=== PATIENT | female | born 1970 | race Caucasian/White ===

== ENCOUNTER 2017-06-26 09:02 | Emergency (ER) | payer OTHER, SELFPAY ==
[2017-06-26 10:04] LABS: Absolute Lymphocytes (CBC) 2.1 K/uL (0.7-4.9); Absolute Monocytes 0.7 K/uL (0.1-1.3); Absolute Neutrophil 7.8 K/uL (1.8-8.0); Basophils % 0.6 % (0-1.3); Eosinophils % 2.2 % (0-4.4); Hematocrit 34.6 % (36.0-45.0); Lymphocytes % 19.1 % (15.3-44.8); MCH 29.2 pg (27.0-35.0); MCV 86.6 fL (80-100); MPV 6.9 fL (7.6-11.3); Monocytes % 6.3 % (3.3-12.3)
--- NOTE | 2017-06-26 10:07 | EKG ---
Test Date: 2017-06-26 Test Time: 09:37:15 Partner Marketing Manager: LEON MEASUREMENT RESULTS: Intervals: Rate: 81 IA: 142 QRSD: 68 QT: 386 QTc: 448 [place]: P: 49 IA: 142 QRS: 14 T: 45 INTERPRETIVE STATEMENTS: Normal sinus rhythm Normal ECG No previous ECG available for comparison Electronically Signed On 06-26-17 10:07:25 CDT by Demetrius Olivear
[2017-06-26 10:14] LABS: Bicarbonate 24 mEq/L (21-31); Glucose Level 105 mg/dL (65-120); Lipase 17 U/L (22-51); Potassium 3.8 mEq/L (3.6-5.0); Sodium Level 135 mEq/L (135-145)
[2017-06-26 10:20] LABS: ALT/SGPT 24 IU/L (10-60); AST/SGOT 24 IU/L (10-42); Albumin 3.8 g/dL (3.2-5.5); Alkaline Phosphatase 69 IU/L (42-121); BUN Blood Urea Nitrogen 7 mg/dL (6-20); Bilirubin Direct 0.1 mg/dL (0-0.2); Bilirubin Total 0.6 mg/dL (0.3-1.2); Magnesium 1.9 mg/dL (1.8-2.5); Protein, Total 7.4 g/dL (6.0-8.3)
[2017-06-26 10:30] LABS: Protime INR 0.97
--- NOTE | 2017-06-26 10:31 | RAD REPORT ---
EXAM DESCRIPTION: Traci Single View06/26/2017 9:46 am CLINICAL HISTORY: Chest pain COMPARISON: none FINDINGS: The lungs appear clear of acute infiltrate. The heart is normal size IMPRESSION: No acute abnormalities displayed
[2017-06-26] MEDS ORDERED: MAGNE/ALUM HYDROXD 30 ML UCUP ONE (11:01)
[2017-06-26] MEDS ORDERED: LIDOCAINE VISCOUS 2% SOLN 15 ML UDC ONE (11:01)
--- NOTE | 2017-06-26 11:02 | ER ---
Nurse's Notes [facility] Name: Kayla Celestin Age: 46 yrs Sex: Female : 1970 Arrival Date: 06/26/2017 Time: 09:06 Bed 15 Private MD: Jessy Smith Diagnosis: Chest pain, unspecified Presentation: 06/26 09:12 Presenting complaint: Patient states: sharp, stabbing, intermittent pain under L breast ss x 3 days. Is worse when laying down and/or when eating. PT also c/o severe fatigue. Transition of care: patient was not received from another setting of care. Onset of symptoms was June 23, 2017. Care prior to arrival: None. 09:12 Method Of Arrival: Ambulatory ss 09:12 Acuity: LUIZ 3 ss Triage Assessment: :54 General: Appears in no apparent distress. uncomfortable, Behavior is cooperative, hj appropriate for age, anxious. Pain: Complains of pain in chest. EENT: No signs and/or symptoms were reported regarding the EENT system. Neuro: Level of Consciousness is awake, alert, obeys commands, Oriented to person, place, time, situation, Appropriate for age. Cardiovascular: Heart tones S1 S2 present Capillary refill < 3 seconds Patient's skin is warm and dry. Respiratory: Airway is patent Respiratory effort is even, unlabored, Respiratory pattern is regular, symmetrical. GI: No signs and/or symptoms were reported involving the gastrointestinal system. : No signs and/or symptoms were reported regarding the genitourinary system. Derm: No signs and/or symptoms reported regarding the dermatologic system. Musculoskeletal: No signs and/or symptoms reported regarding the musculoskeletal system. Historical: - Allergies: 09:27 Ibuprofen; ss - PMHx: 09:27 Hypertension; Anxiety; Bipolar disorder; Depression; ss - PSHx: 09:27 Tubal ligation; ectopic ; endometreosis; Lumpectomy; ss - Immunization history:: Adult Immunizations up to date. - Social history:: Smoking status: Patient uses tobacco products, smokes one-half pack cigarettes per day. Screenin:54 Abuse screen: Denies threats or abuse. Denies injuries from another. Nutritional hj screening: No deficits noted. Tuberculosis screening: No symptoms or risk factors identified. Fall Risk None identified. Assessment: 09:55 Pain: Pain does not radiate. Pain began 1 day ago. hj Vital Signs: 09:27 BP 134 / 97; Pulse 104; Resp 17; Temp 98.5(O); Pulse Ox 96% on R/A; Weight 99.79 kg; ss Height 5 ft. 6 in. (167.64 cm); Pain 8/10; 09:27 Body Mass Index 35.51 (99.79 kg, 167.64 cm) ED Course: 09:06 Patient arrived in ED. mr 09:06 Jessy Smith MD is Private Physician. mr 09:26 Triage completed. ss 09:26 Reid Westfall, SCAR is Primary Nurse. hj 09:27 Arm band placed on right wrist. ss 09:28 Adalberto Bowling NP is PHCP. pm1 09:28 Aakash Rubio MD is Attending Physician. pm1 09:34 EKG done, by technical program manager. reviewed by Adalberto Bowling NP. at1 09:44 X-ray completed. Portable x-ray completed in exam room. Patient tolerated procedure ag1 well. 09:45 XRAY Chest (1 view) In Process Unspecified. EDMS 09:50 Initial lab(s) drawn, by nc, sent to lab. Inserted saline lock: 22 gauge in right hj antecubital area, using aseptic technique. Blood collected. 09:55 tooth grinder on. Pulse ox on. NIBP on. hj 09:55 Patient has correct armband on for positive identification. Placed in gown. Bed in low hj position. Call light in reach. Side rails up X 1. 09:55 Patient maintains SpO2 saturation greater than 95% on room air. hj 11:01 Milton Gates MD is Referral Physician. pm1 11:25 No provider procedures requiring assistance completed. IV discontinued, intact, hj bleeding controlled, No redness/swelling at site. Pressure dressing applied. Administered Medications: 10:45 Drug: GI Cocktail without - (Maalox Suspension 30 ml, Lidocaine Liquid 2 % 15 wh ml) Route: PO; 11:36 Follow up: Response: No adverse reaction hj 10:48 Drug: Pepcid 20 mg Route: IVP; Site: left antecubital; 11:37 Follow up: Response: No adverse reaction hj Outcome: 11:01 Discharge ordered by . pm1 11:25 Discharged to home ambulatory. hj 11:25 Condition: stable 11:25 Discharge instructions given to patient, Instructed on discharge instructions, follow up and referral plans. Demonstrated understanding of instructions, follow-up care. 11:25 Patient left the ED. Signatures: Dispatcher [employer] EDMA DavidIsabella pichardo Shelby, RN RN Mena jeff, nurse rn bsn EKG Tat1 Valery Vivar ag1 Reid Westfall RN RN hj Marinas, Patrick, HOTEL NIGHT AUDITOR HOTEL NIGHT AUDITOR pm1 Rodrigo Perez
--- NOTE | 2017-06-26 11:03 | EDPHYS ---
Physician Documentation [facility] Name: Kayla Celestin Age: 46 yrs Sex: Female : 1970 Arrival Date: 06/26/2017 Time: 09:06 Bed 15 Private MD: Jessy Smith ED Physician Aakash Rubio HPI: 06/26 10:00 This 46 yrs old Female presents to ER via Ambulatory with complaints of Chest pm1 Pain. 10:00 Onset: The symptoms/episode began/occurred 3 day(s) ago. pm1 11:04 The patient or guardian reports chest pain that is located primarily in the substernal pm1 area. Onset:. The pain does not radiate. Associated signs and symptoms: Pertinent negatives: abdominal pain, cough, nausea, shortness of breath, vomiting. The chest pain is described as burning. Duration: The patient or guardian reports a single episode, that is still ongoing. Modifying factors: The symptoms are alleviated by nothing. the symptoms are aggravated by Food and lying down. Severity of pain: in the emergency department the pain is actually worse. prior reflux disease from hiatal hernias. Historical: - Allergies: : Ibuprofen; ss - PMHx: : Hypertension; Anxiety; Bipolar disorder; Depression; ss - PSHx: : Tubal ligation; ectopic ; endometreosis; Lumpectomy; ss - Immunization history:: Adult Immunizations up to date. - Social history:: Smoking status: Patient uses tobacco products, smokes one-half pack cigarettes per day. ROS: 11:04 Constitutional: Negative for fever, chills, and weight loss, Eyes: Negative for injury, pm1 pain, redness, and discharge, ENT: Negative for injury, pain, and discharge, Neck: Negative for injury, pain, and swelling. 11:04 Respiratory: Negative for shortness of breath, cough, wheezing, and pleuritic chest pain, Abdomen/GI: Negative for abdominal pain, nausea, vomiting, diarrhea, and constipation, Back: Negative for injury and pain, : Negative for injury, bleeding, discharge, and swelling, MS/Extremity: Negative for injury and deformity, Skin: Negative for injury, rash, and discoloration, Neuro: Negative for headache, weakness, numbness, tingling, and seizure. 11:04 Cardiovascular: Positive for chest pain, Negative for edema, palpitations. Exam: 11:04 Constitutional: This is a well developed, well nourished patient who is awake, alert, pm1 and in no acute distress. Head/Face: Normocephalic, atraumatic. Eyes: Pupils equal round and reactive to light, extra-ocular motions intact. Lids and lashes normal. Conjunctiva and sclera are non-icteric and not injected. Cornea within normal limits. Periorbital areas with no swelling, redness, or edema. ENT: Nares patent. No nasal discharge, no septal abnormalities noted. Tympanic membranes are normal and external auditory canals are clear. Oropharynx with no redness, swelling, or masses, exudates, or evidence of obstruction, uvula midline. Mucous membranes moist. Neck: Trachea midline, no thyromegaly or masses palpated, and no cervical lymphadenopathy. Supple, full range of motion without nuchal rigidity, or vertebral point tenderness. No Meningismus. Chest/axilla: Normal chest wall appearance and motion. Nontender with no deformity. No lesions are appreciated. Cardiovascular: Regular rate and rhythm with a normal S1 and S2. No gallops, murmurs, or rubs. Normal PMI, no JVD. No pulse deficits. Respiratory: Lungs have equal breath sounds bilaterally, clear to auscultation and percussion. No rales, rhonchi or wheezes noted. No increased work of breathing, no retractions or nasal flaring. Abdomen/GI: Soft, non-tender, with normal bowel sounds. No distension or tympany. No guarding or rebound. No evidence of tenderness throughout. Back: No spinal tenderness. No costovertebral tenderness. Full range of motion. Skin: Warm, dry with normal turgor. Normal color with no rashes, no lesions, and no evidence of cellulitis. MS/ Extremity: Pulses equal, no cyanosis. Neurovascular intact. Full, normal range of motion. 11:04 Neuro: Orientation: is normal, Mentation: is normal, Motor: moves all fours, Gait: is steady, at a normal pace, without difficulty. Vital Signs: 09:27 BP 134 / 97; Pulse 104; Resp 17; Temp 98.5(O); Pulse Ox 96% on R/A; Weight 99.79 kg; ss Height 5 ft. 6 in. (167.64 cm); Pain 10/31; 09:27 Body Mass Index 35.51 (99.79 kg, 167.64 cm) ss MDM: 09:28 Patient medically screened. pm1 11:00 Data reviewed: vital signs. Data interpreted: Pulse oximetry: on room air is 96 %. pm1 Interpretation: normal. Counseling: I had a detailed discussion with the patient and/or guardian regarding: the historical points, exam findings, and any diagnostic results supporting the discharge/admit diagnosis, lab results, radiology results, the need for outpatient follow up, to return to the emergency department if symptoms worsen or persist or if there are any questions or concerns that arise at home. 06/26 09:32 Order name: Basic Metabolic Panel; Complete Time: 10:30 pm06/26 09:32 Order name: BNP; Complete Time: 10:30 pm06/26 09:32 Order name: CBC with Diff; Complete Time: 10:19 pm06/26 09:32 Order name: LFT's; Complete Time: 10:30 pm06/26 09:32 Order name: Magnesium; Complete Time: 10:30 pm06/26 09:32 Order name: PT-INR; Complete Time: 10:35 pm06/26 09:32 Order name: Ptt, Activated; Complete Time: 10:35 pm06/26 09:32 Order name: Troponin (emerg Dept Use Only); Complete Time: 10:30 pm06/26 09:32 Order name: XRAY Chest (1 view); Complete Time: 10:35 pm06/26 09:32 Order name: Lipase; Complete Time: 10:30 pm06/26 10:10 Order name: Urine Dipstick--Ancillary (enter results) ag 06/26 10:10 Order name: Urine --Ancillary (enter results) ag 06/26 09:32 Order name: Urine Test (obtain specimen); Complete Time: 10:07 pm06/26 09:32 Order name: EKG; Complete Time: 09:33 pm06/26 09:32 Order name: Cardiac monitoring; Complete Time: 09:36 pm06/26 09:32 Order name: EKG - Nurse/Tech; Complete Time: 09:36 pm06/26 09:32 Order name: IV Saline Lock; Complete Time: 10:08 pm1 06/26 09:32 Order name: Labs collected and sent; Complete Time: 10:08 pm1 06/26 09:32 Order name: O2 Per Protocol; Complete Time: 09:36 pm1 06/26 09:32 Order name: O2 Sat Monitoring; Complete Time: 09:36 pm1 04 09:32 Order name: Urine Dipstick-Ancillary (obtain specimen); Complete Time: 10:07 pm1 Administered Medications: 10:45 Drug: GI Cocktail without - (Maalox Suspension 30 ml, Lidocaine Liquid 2 % 15 wh ml) Route: PO; 11:36 Follow up: Response: No adverse reaction 10:48 Drug: Pepcid 20 mg Route: IVP; Site: left antecubital; 11:37 Follow up: Response: No adverse reaction Disposition: 16:15 Co-signature as Attending Physician, Aakash Rubio MD I agree with the assessment and justyn plan of care. Disposition: 06/26/17 11:01 Discharged to Home. Impression: Chest pain, unspecified. - Condition is Stable. - Discharge Instructions: Nonspecific Chest Pain. - Medication Reconciliation Form, Thank You Letter form. - Follow up: Emergency Department; When: As needed; Reason: Worsening of condition. Follow up: Milton Gates MD; When: 2 - 3 days; Reason: Recheck today's complaints, Continuance of care, Re-evaluation by your physician. - Problem is new. - Symptoms have improved. Signatures: Dispatcher [employer] Aakash Foy MD MD cha Smirch, Shelby, RN RN Reid Westfall RN RN hj Marinas, Patrick, TYLER CHIEF SERVICE DISPATCHER pm1 Felicianoshayna Rodrigo
[2017-06-26] MEDS ORDERED: FAMOTIDINE 20 MG/2 ML VIAL IV ONE (11:06)
[2017-06-26 11:25] LABS: Urine Blood NEGATIVE (NEG); Urine Glucose NEGATIVE (NEG); Urine Protein TRACE (NEG); Urine pH 6.5 (5.0-7.0)
[2017-06-26 11:32] VITALS: BP 134/97; TEMP 98.5; O2SAT 96
== END 2017-06-26 11:25 | disposition home or self-care (01) ==
LOC: ER 09:02
DX: R07.9 Chest pain, unspecified (principal); I10 Essential (primary) hypertension; F17.210 Nicotine dependence, cigarettes, uncomplicated; Z88.6 Allergy status to analgesic agent
CPT/HCPCS: 36415; 71045; 80048; 80076; 81003; 81025; 83690; 83735; 83880; 84484; 85025; 85610; 85730; 93005; 96374; 99285

== ENCOUNTER 2019-08-21 23:14 | Emergency (ER) | payer BC, SELFPAY ==
--- OUTSIDE RECORDS SUMMARY | 2019-08-21 23:17 | XMS REPORT ---
:1970 Author Organization e[employer]Works Care Team Providers Name Role Phone Smith, Na Provider Role Unavailable Allergies No Known Allergies Problems Problem Type Condition Code Onset Dates Condition Statu s Problem Cigarette smoker F17.210 Active Problem Depression with anxiety F41.8 Acti ve Problem Atypical chest pain R07.89 Active Problem Bipolar disorder F31.9 Active Problem White coat syndrome with diagnosis I10 Active of hypertension Problem Thrombocytopenia D69.6 Active Problem Abscess L02.91 Active Problem Obese E66.9 Active Problem GERD (gastroesophageal reflux K21.9 Active disease) Problem Cough R05 Active Problem Bipolar 1 disorder F31.9 Active Medications No Known Medications Results No Known Results Summary Purpose eClinicalWorks Submission
--- OUTSIDE RECORDS SUMMARY | 2019-08-21 23:17 | XMS REPORT ---
:1970 Author Organization [facility] t Address [facility] [place] [address] Care Team Providers Name Role Phone Unavailable Unavailable Unavailable Problems Condition Condition Condition Status Onset Resolution Last Treating Co mments Source Name Details Category Date Date Treatment Clinician Date White coat White coat Problem Active [facility] syndrome [facility] diagnosis diagnosis l of of Outpati hypertensi hypertensi en t on on Clinics Obese Obese Problem Active [facility] GERD GERD Problem Active [facility] (gastroeso (gastroeso Sarita kes - phageal phageal [facility]oria reflux reflux l disease) disease) Outpat ent Clinics Depression Depression Diagnosis [facility] Bipolar 1 Bipolar [address] [facility] disorder disorder [facility] Thrombocyt Thrombocyt Problem Active [facility] openia openia [facility] Cough Cough Problem Active [facility] Atypical Atypical Problem [facility] chest pain chest pain Sairta k[facility] - [facility] Cigarette Cigarette Problem Active [facility] smoker smoker [facility] Abscess Abscess Problem Active [facility] Allergies, Adverse Reactions, Alerts Allergy Allergy Status Severity Reaction(s) Onset Inactive Treating Comm ents Source Name Type Date Date Clinician Naproxen Adverse Active Info Not [facility] Reaction Available [facility] Medications Ordered Filled Start Stop Current Ordering Indication Dosage Frequency Signature Comments Components Source Medication Medication Date Date Medication? Clinician (SIG) Name Name Xanax Xanax Yes Na Smith [address] [facility] QUEtiapine QUEtiapine Yes Na Smith [address] [facility] Fumarate ER Fumarate ER in the [facility] evening [facility] Outpati ent Clinics Procedures This patient has no known procedures. Encounters Start End Encounter Admission Attending Care Care Encounter Source Date/Time Date/Time Type Type Clinicians Facility Department ID 2019-07-26 2019-07-26 [facility] [id number] [facility] 11:41:00 11:41:00 [place] [facility] Medicine Outpati ent Clinics 2019-07-08 2019-07-08 [facility] [id number] [facility] 16:13:00 16:13:00 [place] [facility] Medicine Outpati ent Clinics 2019-06-22 2019-06-22 [facility] [id number] [facility] 15:33:00 15:33:00 [place] [facility] Medicine Outpati ent Clinics 2019-05-28 2019-05-28 [facility] [id number] [facility] 08:40:00 08:40:00 [place] [facility] Medicine Outpati ent Clinics 2019-04-29 2019-04-29 [facility] [id number] [facility] 09:00:00 09:00:00 [place] [facility] Medicine Outpati ent Clinics 2019-03-29 2019-03-29 [facility] [id number] [facility] 08[facility]40:00 08:40:00 [place] [facility] Medicine Outpati ent Clinics 2019-02-23 2019-02-23 [facility] [id number] 15:40:00 15:40:00 [place] [employer] [facility] Medicine Outpati ent Clinics 2018-11-30 2018-11-30 [facility] [id number] 16:32:00 16:32:00 [place] [employer] [facility] Medicine Outpati ent Clinics 2018-09-16 2018-09-16 [facility] [id number] 08:20:00 08:20:00 [place] [employer] [facility] Medicine Outpati ent Clinics 2018-08-19 2018-08-19 [facility] [id number] 08:40:00 08:40:[place] [address] [facility] Medicine l Medicine Outpati ent Clinics 2018-07-14 2018-07-14 [facility] [id number] [facility] 14:20:00 14:20:00 [place] [address] [facility] - Drive [facility] Medicine l Medicine Outpati ent Clinics 2018-05-22 2018-05-22 [facility] [id number] 15:04:00 15:04:00 [place] [facility] Medicine l Medicine Outpati ent Clinics 2018-05-21 2018-05-21 [facility] [id number] [facility] 11:00:00 11:00:00 [place] [facility] l Medicine Outpati ent Clinics 2018-05-15 2018-05-15 [facility] [id number] 16:33:00 16:33:00 [place] [facility] Medicine Medicine Outpati ent Clinics 2018-04-20 2018-04-20 [facility] [id number] [facility] 15:15:00 15:15:00 [place] [facility] l Medicine Outpati ent Clinics 2017-11-14 2017-11-14 [facility] [id number] 10:15:00 10:15:00 [place] [facility] Medicine l Medicine Outpati ent Clinics 2017-10-15 2017-10-15 [facility] [id number] 08:15:00 08:15:00 [place] [facility] Medicine l Medicine Outpati ent Clinics 2017-09-15 2017-09-15 [facility] [id number] 09:00:00 09:00:00 [place] [address] [facility] l Medicine Outpati ent Clinics 2017-09-09 2017-09-09 [facility] [id number] 10:59:00 10:59:00 [place] [address] [employer] ent [facility] 2017-08-15 2017-08-15 [facility] [id number] 08:45:00 08:45:00 [place] [employer] [facility] ent [facility] 2017-07-18 2017-07-18 Outpatient Fang Fox [id number] 09:00:00 09:00:00 [employer] [facility] ent Clinics Results This patient has no known results.
--- OUTSIDE RECORDS SUMMARY | 2019-08-21 23:17 | XMS REPORT ---
:1970 Author Organization eClinicalWorks Care Team Providers Name Role Phone Smith, Na Provider Role Unavailable Allergies No Known Allergies Problems Problem Type Condition Code Onset Dates Condition Statu s Problem Cigarette smoker F17.210 Active Problem Depression with anxiety F41.8 Acti ve Problem Atypical chest pain R07.89 Active Assessment Essential hypertension I10 Activ e Problem Bipolar disorder F31.9 Active Problem White coat syndrome with diagnosis I10 Active of hypertension Problem Thrombocytopenia D69.6 Active Problem Abscess L02.91 Active Problem Obese E66.9 Active Problem GERD (gastroesophageal reflux K21.9 Active disease) Problem Cough R05 Active Problem Bipolar 1 disorder F31.9 Active Medications Medication Code Code Instructions Start End Date Status Dosage System Date Lisinopril [facility] 96794775046 40 MG Orally Active 1 ta blet Once a day Metoprolol [facility] 28003929501 50 MG Orally Active 1 ta blet Tartrate Twice a day with food Results No Known Results Summary Purpose eClinicalWorks Submission
--- OUTSIDE RECORDS SUMMARY | 2019-08-21 23:17 | XMS REPORT ---
:1970 Author Organization eClinicalWorks Care Team Providers Name Role Phone Smith, Na Provider Role Unavailable Allergies, Adverse Reactions, Alerts Substance Reaction Event Type Naproxen Info Not Available Drug Allergy Problems Problem Type Condition Code Onset Dates Condition Statu s Problem Cigarette smoker F17.210 Active Problem Depression with anxiety F41.8 Acti ve Problem Atypical chest pain R07.89 Active Problem White coat syndrome with diagnosis I10 Active of hypertension Problem Thrombocytopenia D69.6 Active Problem Abscess L02.91 Active Problem Obese E66.9 Active Problem GERD (gastroesophageal reflux K21.9 Active disease) Problem Cough R05 Active Problem Bipolar 1 disorder F31.9 Active Assessment Depression with anxiety F41.8 Acti ve Assessment Essential hypertension I10 Activ e Assessment GERD (gastroesophageal reflux K21.9 Active disease) Assessment Bipolar 1 disorder F31.9 Active Problem Bipolar disorder F31.9 Active Medications Medication Code Code Instructions Start End Status Dosage System Date Date QUEtiapine [facility] 88796628139 300 MG Orally Active 1 t ablet Fumarate ER Once a day in the evening Prozac [facility] 65129423163 20 MG Orally Active 1 capsu le Once a day in the morning QUEtiapine [facility] 98487577163 200 MG Orally Apr 20, Active 1 t ablet Fumarate ER Once a day 2018 in the evening Valproic Acid [facility] [address]-05 250 MG Orally Active 1 capsule Three times a day Medrol [facility] 92127055764 4 MG Orally Active 1 tablet with food or milk in the morning Xanax [facility] 94780938124 0.5 MG Orally Active 1 tabl et three times a day Lisinopril [facility] 77809593848 10 MG Orally Active 1 ta blet Once a day Valproic Acid [facility] 02146481845 250 MG Orally Active 1 cap TID Prozac [facility] 90223088491 20 MG Orally Active 1 capsu le Once a day in the morning Omeprazole [facility] 18153391337 40 MG Orally Active 1 ca psule Once a day Omeprazole [facility] 07111994750 40 MG Orally Active 1 ca psule Once a day Quetiapine [facility] 20670876292 300 MG Orally Active juan e 1 Fumarate Once a day at tablet by bedtime mouth twice a day Lisinopril [facility] 96010800528 40 MG Orally Active 1 ta blet Once a day Metoprolol ND 83856605930 50 MG Orally Active 1 ta blet Tartrate Twice a day with food Quetiapine [facility] 31009275897 100 MG Orally Active 1 t ablet Fumarate Twice a day Lisinopril [facility] 46619600092 40 MG Orally Active 1 ta blet Once a day Valproic Acid [facility] 52125633399 250 MG Orally Active 1 cap TID Results No Known Results Summary Purpose eClinicalWorks Submission
--- OUTSIDE RECORDS SUMMARY | 2019-08-21 23:18 | XMS REPORT ---
:1970 Author Organization [employer] Care Team Providers Name Role Phone Smith, Na Provider Role Unavailable Allergies No Known Allergies Problems Problem Type Condition Code Onset Dates Condition Statu s Problem Cigarette smoker F17.210 Active Problem Depression with anxiety F41.8 Acti ve Problem Atypical chest pain R07.89 Active Assessment Depression with anxiety F41.8 Acti ve Problem Bipolar disorder F31.9 Active Problem White coat syndrome with diagnosis I10 Active of hypertension Problem Thrombocytopenia D69.6 Active Problem Abscess L02.91 Active Problem Obese E66.9 Active Problem GERD (gastroesophageal reflux K21.9 Active disease) Problem Cough R05 Active Problem Bipolar 1 disorder F31.9 Active Medications Medication Code Code Instructions Start End Status Dosage System Date Date Xanax [facility] 55141766076 0.5 MG Orally Active 1 tabl et three times a day QUEtiapine [facility] 19320423249 300 MG Orally Active 1 t ablet Fumarate ER Once a day in the evening Results No Known Results Summary Purpose eClinicalWorks Submission
[2019-08-22] MEDS ORDERED: ONDANSETRON 4 MG/2 ML VIAL ONE (00:05)
[2019-08-22] MEDS ORDERED: PANTOPRAZOLE 40 MG INJ ONE (00:05)
[2019-08-22 00:29] LABS: Absolute Lymphocytes (CBC) 3.6 K/uL (0.7-4.9); Basophils % 1.2 % (0-1.3); Hematocrit 37.6 % (36.0-45.0); Lymphocytes % 29.2 % (15.3-44.8); MPV 7.7 fL (7.6-11.3); RBC Red Blood Cell Count 3.83 M/uL (3.86-4.86)
[2019-08-22 00:30] LABS: Protime INR 0.91
[2019-08-22 00:45] LABS: ALT/SGPT 45 U/L (12-78); AST/SGOT 43 U/L (15-37); Albumin 3.2 g/dL (3.4-5.0); Alkaline Phosphatase 114 U/L (45-117); BUN Blood Urea Nitrogen 6 mg/dL (7-18); Bicarbonate 25 mmol/L (21-32); Bilirubin Direct < 0.1 mg/dL (0-0.2); Bilirubin Total 0.1 mg/dL (0.2-1.0); Glucose Level 99 mg/dL (74-106); Lipase 164 U/L (73-393); Magnesium 2.3 mg/dL (1.8-2.4); Potassium 3.8 mmol/L (3.5-5.1); Protein, Total 7.6 g/dL (6.4-8.2); Sodium Level 136 mmol/L (136-145); Troponin I < 0.02 ng/mL (0.0-0.045)
[2019-08-22 00:53] LABS: Urine Blood TRACE (NEG); Urine Glucose NEGATIVE (NEG); Urine Protein NEGATIVE (NEG)
[2019-08-22 02:28] VITALS: O2SAT 100
[2019-08-22 02:31] VITALS: BP 102/71; TEMP 98
--- NOTE | 2019-08-22 11:27 | RAD REPORT ---
EXAM DESCRIPTION: Traci Single View08/22/2019 1:28 am CLINICAL HISTORY: Abdominal COMPARISON: 2017 FINDINGS: The lungs appear clear of acute infiltrate. The heart is normal size IMPRESSION: No acute abnormalities displayed
--- NOTE | 2019-08-22 12:41 | RAD REPORT ---
EXAM DESCRIPTION: CT - Abdomen Pelvis W Contrast - 08/22/2019 3:01 am CLINICAL HISTORY: Hematemesis. Epigastric pain. COMPARISON: None. TECHNIQUE: Axial CT imaging of the abdomen and pelvis performed with intravenous contrast in the art erial and venous phases. Reformatted coronal and sagittal images reviewed. A dose reduction technique was utilized with automated exposure control according to patient size. FINDINGS: Normal heart size. Clear lung bases. Normal liver size, contour with mild fatty infiltration. Normal gallbladder, spleen, pancreas, adrena l glands, and kidneys. Normal enhancement of both kidneys with no perinephric edema. Normal caliber a ivon and inferior vena cava. No adenopathy. Mesenteric vessels appear normal. The stomach appears normal. Small bowel loops are unremarkable. Normal appendix is present within the right lower quadrant. Normal colon. No ascites or free air. Normal bladder. Normal uterus and ovaries. No pelvic free fluid. Prominent endplate osteophytes T11-12. There is mild degenerative endplate hypertrophic change throug hout the lumbar endplates. Intact bony pelvis. Normal hips. IMPRESSION: 1. No acute finding within the abdomen or pelvis. 2. Mild hepatic steatosis.. Electronically signed by: Merary Velásquez DO 08/22/2019 1:50 AM CDT Due to temporary technical issues with the PACS/Fluency reporting system, reports are being signed by the in house radiologist without review as a courtesy to ensure prompt reporting. The interpreting r adiologist is fully responsible for the content of the report.
--- NOTE | 2019-08-22 14:06 | EKG ---
Test Date: 2019-08-21 Test Time: 23:55:12 Driver Starting Gate: KASSI MEASUREMENT RESULTS: Intervals: Rate: 81 IL: 166 QRSD: 78 QT: 374 QTc: 434 [place]: P: 61 IL: 166 QRS: 30 T: 57 INTERPRETIVE STATEMENTS: Normal sinus rhythm Normal ECG Compared to ECG 06/26/2017 09:37:15 No significant changes Electronically Signed On 08-22-19 14:05:15 CDT by Demetrius Olivera
--- NOTE | 2019-08-23 18:29 | EDPHYS ---
Physician Documentation [facility] Name: Kayla Celestin Age: 48 yrs Sex: Female : 1970 Arrival Date: 08/21/2019 Time: 23:15 Bed 8 Private MD: ED Physician Jorge Mike HPI: 08/20 23:40 This 48 yrs old Female presents to ER via EMS with complaints of Vomiting - cp Blood. 23:40 The patient presents to the emergency department with vomiting, that is intermittent, cp described as bright red blood, coffee ground in nature, abdominal pain, of the epigastric area. Onset: The symptoms/episode began/occurred today. Possible causes: unknown. Associated signs and symptoms: Pertinent positives: retrosternal chest pain, Pertinent negatives: constipation, diarrhea, fever, actively vomiting. Severity of symptoms: in the emergency department the symptoms are unchanged despite home interventions. 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 - Social history:: Smoking status: Patient denies any tobacco usage or history of. ROS: 23:45 Eyes: Negative for injury, pain, redness, and discharge. cp 23:45 Constitutional: Negative for body aches, chills, fever, poor PO intake. 23:45 ENT: Negative for drainage from ear(s), ear pain, sore throat, difficulty swallowing, difficulty handling secretions. 23:45 Cardiovascular: Positive for chest pain, of the retrosternal, Negative for edema, palpitations. 23:45 Respiratory: Negative for cough, shortness of breath, wheezing. 23:45 Abdomen/GI: Positive for abdominal pain, nausea and vomiting, hematemesis, of the epigastric area, Negative for diarrhea, constipation, black/tarry stool, rectal bleeding. 23:45 Back: Negative for radiated pain. 23:45 : Negative for urinary symptoms. 23:45 Neuro: Negative for altered mental status, headache, weakness. 23:45 All other systems are negative. Exam: 23:50 Head/Face: Normocephalic, atraumatic. cp 23:50 Constitutional: The patient appears in no acute distress, alert, awake, non-diaphoretic, non-toxic, well developed, well nourished. 23:50 Eyes: Periorbital structures: appear normal, Conjunctiva: normal, no exudate, no injection, Sclera: no appreciated abnormality, Lids and lashes: appear normal, bilaterally. 23:50 ENT: External ear(s): are unremarkable, Nose: is normal, Mouth: Lips: moist, Oral mucosa: moist, Posterior pharynx: Airway: no evidence of obstruction, patent. 23:50 Chest/axilla: Inspection: normal, Palpation: is normal, no crepitus, no tenderness. 23:50 Cardiovascular: Rate: normal, Rhythm: regular, Heart sounds: murmur, not appreciated, Edema: is not appreciated, JVD: is not appreciated. 23:50 Respiratory: the patient does not display signs of respiratory distress, Respirations: normal, no use of accessory muscles, no retractions, labored breathing, is not present, accessory muscle usage, is absent, Breath sounds: are clear throughout, no decreased breath sounds, no stridor, no wheezing. 23:50 Abdomen/GI: Inspection: abdomen appears normal, Bowel sounds: active, all quadrants, Palpation: soft, in all quadrants, mild abdominal tenderness, in the epigastric area, rebound tenderness, is not appreciated, voluntary guarding, is not appreciated, involuntary guarding, is not appreciated. 23:50 Back: pain, is absent, ROM is normal. 23:50 Neuro: Orientation: to person, place \T\ time. Mentation: is normal, Motor: moves all fours, strength is normal. 23:59 ECG was reviewed by the Attending Physician. cp Vital Signs: 08/21 00:20 BP 123 / 83; Pulse 81; Resp 14; Temp 98.0(O); Pulse Ox 100% on R/A; Weight 72.57 kg; ls4 Height 5 ft. 6 in. (167.64 cm); Pain 5/10; 01:09 BP 123 / 83; Pulse 78; Resp 16; Pulse Ox 100% on R/A; Pain 3/10; ls4 02:20 BP 102 / 71; Pulse 70; Resp 17; Temp 98; Pulse Ox 100% on R/A; rv 00:20 Body Mass Index 25.82 (72.57 kg, 167.64 cm) ls4 MDM: 08/20 23:28 Patient medically screened. 08/21 00:00 Differential diagnosis: Nonspecific abd pain, gastritis, pancreatitis, viral cp gastroenteritis, gastroenteritis. 02:10 Data reviewed: vital signs, nurses notes, lab test result(s), EKG, radiologic studies, cp CT scan, plain films. 02:10 Test interpretation: by ED physician or midlevel provider: ECG, chest xray negative for cp infiltrates. Counseling: I had a detailed discussion with the patient and/or guardian regarding: the historical points, exam findings, and any diagnostic results supporting the discharge/admit diagnosis. 02:10 Response to treatment: the patient's symptoms have markedly improved after treatment, cp patient is well hydrated. Nausea and pain improved, vomiting resolved, and as a result, I will discharge patient. Special discussion: Based on the patient's Hx, exam, and Dx evaluation, there is no indication for emergent surgery or inpatient Tx. It is understood by the patient/guardian that if the Sx's persist or worsen they need to return immediately for re-evaluation. 08/20 23:37 Order name: Basic Metabolic Panel; Complete Time: 01:07 cp 08/21 01:07 Interpretation: Normal except: BUN 6; GFR 85. cp 08/20 23:37 Order name: CBC with Diff; Complete Time: 01: cp 08/21 01:07 Interpretation: Normal except: WBC 12.2; RBC 3.83; PLT 430. 08/20 23:37 Order name: Hepatic Function; Complete Time: 01:07 cp 08/21 01:07 Interpretation: Normal except: AST 43; BILIT 0.1; ALB 3.2; GLOB 4.4; A/G 0.7. 08/20 23:37 Order name: Lipase; Complete Time: : cp 08/21 01:08 Interpretation: Within normal limits: LIP 164. cp 08/20 23:37 Order name: PT-INR; Complete Time: 01: cp 08/20 23:37 Order name: Ptt, Activated; Complete Time: 01: cp 08/20 23:37 Order name: XRAY Chest (1 view) cp 05/30 23:37 Order name: Troponin I; Complete Time: 01:07 cp 08/21 01:08 Interpretation: Within normal limits: TROP < 0.02. cp 08/20 23:37 Order name: Magnesium; Complete Time: 01:07 cp 08/20 23:37 Order name: CT Abd/Pelvis - IV Contrast Only cp 08/21 00:34 Order name: Urine Dipstick--Ancillary (enter results); Complete Time: 01:07 mt 08/21 02:05 Interpretation: Normal except: UBLD TRACE. cp 08/21 00:34 Order name: Urine --Ancillary (enter results); Complete Time: 01:07 mt 08/20 23:37 Order name: IV Saline Lock; Complete Time: 00:19 cp 08/20 23:37 Order name: Labs collected and sent; Complete Time: 00:19 cp 08/20 23:37 Order name: EKG; Complete Time: 23:37 cp 08/20 23:37 Order name: EKG - Nurse/Tech; Complete Time: 00:05 cp 08/21 02:07 Order name: PO challenge; Complete Time: 02:20 cp EC/30 23:59 Rate is 81 beats/min. Rhythm is regular. NE interval is normal. QRS interval is normal. cp QT interval is normal. T waves are Inverted in lead aVR. Interpreted by me. Reviewed by me. Administered Medications: 08/21 00:05 Drug: Zofran (Ondansetron) 4 mg Route: IVP; Site: left forearm; rr5 02:20 Follow up: Response: No adverse reaction rv 00:07 Drug: ProTONIX 40 mg Route: IVP; Site: left forearm; rr5 02:20 Follow up: Response: No adverse reaction rv Disposition: 07:12 Co-signature as Attending Physician, Jorge Mike MD. [email or web address] Disposition: 08/22/19 02:10 Discharged to Home. Impression: Nausea and vomiting, Epigastric pain. - Condition is Stable. - Discharge Instructions: Abdominal Pain, Adult, Nausea and Vomiting, Adult. - Prescriptions for Protonix 40 mg Oral Tablet - take 1 tablet by ORAL route once daily; 30 tablet. Zofran 4 mg Oral Tablet - take 1 tablet by ORAL route every 12 hours As needed; 20 tablet. Phenergan 25 mg Rectal Suppository - insert 1 suppository by RECTAL route every 6 hours As needed; 12 suppository. - Medication Reconciliation Form, Thank You Letter, Antibiotic Education, Prescription Opioid Use form. - Follow up: Milton Gates MD; When: 2 - 3 days; Reason: Recheck today's complaints. - Problem is new. - Symptoms have improved. Signatures: Dispatcher [employer] EDMS Bienvenido Roberts RN RN sg Aakash Rodriguez PA PA cp Renard Mccrary RN RN rv Mekhi Adorno RN RN rr5 Jorge Mike MD MD 7 Corrections: (The following items were deleted from the chart) 02:21 02:10 08/22/2019 02:10 Discharged to Home. Impression: Nausea and vomiting; Epigastric rv pain. Condition is Stable. Forms are Medication Reconciliation Form, Thank You Letter, Antibiotic Education, Prescription Opioid Use. Follow up: Milton Gates; When: 2 - 3 days; Reason: Recheck today's complaints. Problem is new. Symptoms have improved. cp
--- NOTE | 2019-08-23 18:29 | ER ---
Nurse's Notes [facility] Name: Kayla Celestin Age: 48 yrs Sex: Female : 1970 Arrival Date: 08/21/2019 Time: 23:15 Bed 8 Private MD: Diagnosis: Nausea and vomiting;Epigastric pain Presentation: 08/20 23:18 Chief complaint: Patient states: pt reports she has been vomiting blood this evening, sg vomiting that was bright red. Coronavirus screen: Proceed with normal triage. Ebola Screen: Patient negative for fever greater than or equal to 101.5 degrees Fahrenheit, and additional compatible Ebola Virus Disease symptoms Patient denies exposure to infectious person. Patient denies travel to an Ebola-affected area in the 21 days before illness onset. No symptoms or risks identified at this time. Risk Assessment: Do you want to hurt yourself or someone else? Patient reports no desire to harm self or others. Onset of symptoms was August 21, 2019. Care prior to arrival: None. 23:18 Method Of Arrival: EMS: [facility] 23:18 Acuity: LUIZ 3 sg 08/21 00:20 Initial Sepsis Screen: Does the patient meet any 2 criteria? No. Patient's initial ls4 sepsis screen is negative. Does the patient have a suspected source of infection? No. Patient's initial sepsis screen is negative. Activity prior to arrival:. Triage Assessment: 00:10 General: Appears uncomfortable, Behavior is crying. EENT: No deficits noted. No signs ls4 and/or symptoms were reported regarding the EENT system. Neuro: Level of Consciousness is awake, alert, Oriented to person, place, time, situation, Canteen Manager are equal bilaterally Moves all extremities. Cardiovascular: Denies diaphoresis, fatigue, lightheadedness, nausea, palpitations, shortness of breath, syncope, vomiting, Capillary refill < 3 seconds Patient's skin is warm and dry. Respiratory: Denies cough, shortness of breath labored breathing. GI: Reports vomiting, STATES IT WAS COFFEE GROUND BLOOD. : No deficits noted. No signs and/or symptoms were reported regarding the genitourinary system. Derm: No deficits noted. No signs and/or symptoms reported regarding the dermatologic system. Musculoskeletal: No deficits noted. No signs and/or symptoms reported regarding the musculoskeletal system. 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 - Social history:: Smoking status: Patient denies any tobacco usage or history of. Screenin/31 00:20 Abuse screen: Denies threats or abuse. Denies injuries from another. Nutritional ls4 screening: No deficits noted. Tuberculosis screening: No symptoms or risk factors identified. Fall Risk None identified. Assessment: 00:08 Pain: Complains of pain in epigastric area Pain currently is 7 out of 10 on a pain ls4 scale. Quality of pain is described as burning, Pain began 3 hours ago. GI: Abdomen is round non-distended, obese, Bowel sounds present X 4 quads. Vital Signs: 00:20 BP 123 / 83; Pulse 81; Resp 14; Temp 98.0(O); Pulse Ox 100% on R/A; Weight 72.57 kg; ls4 Height 5 ft. 6 in. (167.64 cm); Pain 5/10; 01:09 BP 123 / 83; Pulse 78; Resp 16; Pulse Ox 100% on R/A; Pain 3/10; ls4 02:20 BP 102 / 71; Pulse 70; Resp 17; Temp 98; Pulse Ox 100% on R/A; rv 00:20 Body Mass Index 25.82 (72.57 kg, 167.64 cm) ls4 ED Course: 08/20 23:15 Patient arrived in ED. ds1 23:20 Triage completed. sg 23:20 Arm band placed on. sg 23:23 Jorge Mike MD is Attending Physician. mh7 23:23 Aakash Rodriguez PA is PHCP. cp 23:23 Jorge Mike MD is Attending Physician. cp 23:43 Erika Zepeda, SCAR is Primary Nurse. ls4 23:59 EKG completed in triage. Results shown to MD. ls4 08/21 00:05 Inserted saline lock: 20 gauge in left forearm, using aseptic technique. Blood rr5 collected. 00:19 XRAY Chest (1 view) Sent. ls4 00:20 Patient has correct armband on for positive identification. Bed in low position. Call ls4 light in reach. Side rails up X 1. quality assurance monitor body on. Pulse ox on. NIBP on. Warm blanket given. Verbal reassurance given. Diet: Patient is NPO. 00:20 No provider procedures requiring assistance completed. Initial lab(s) drawn, by ED ls4 staff, sent to lab. Patient maintains SpO2 saturation greater than 95% on room air. 00:37 No apparent distress. ls4 01:27 XRAY Chest (1 view) In Process Unspecified. EDMS 01:41 CT Abd/Pelvis - IV Contrast Only In Process Unspecified. EDMS 02:09 Milton Gates MD is Referral Physician. cp 02:21 IV discontinued, intact, bleeding controlled, No redness/swelling at site. Pressure rv dressing applied. Administered Medications: 00:05 Drug: Zofran (Ondansetron) 4 mg Route: IVP; Site: left forearm; rr5 02:20 Follow up: Response: No adverse reaction rv 00:07 Drug: ProTONIX 40 mg Route: IVP; Site: left forearm; rr5 02:20 Follow up: Response: No adverse reaction rv Outcome: 02:10 Discharge ordered by . cp 02:21 Discharged to home ambulatory. rv 02:21 Condition: good 02:21 Discharge instructions given to patient, Instructed on discharge instructions, follow up and referral plans. medication usage, Demonstrated understanding of instructions, follow-up care, medications, Prescriptions given X 3. 02:21 Patient left the ED. rv Signatures: Dispatcher [employer] EDNY Bienvenido Roberts RN RN sg [place], Demi ds1 Aakash Rodriguez PA PA cp Renard Mccrary RN RN rv Erika Zepeda RN RN ls4 Mekhi Adorno RN RN rr5 Jorge Mike MD MD 7
== END 2019-08-22 02:21 | disposition home or self-care (01) ==
LOC: ER 23:14
DX: R10.13 Epigastric pain (principal); I10 Essential (primary) hypertension; Z88.6 Allergy status to analgesic agent
CPT/HCPCS: 36415; 71045; 74177; 80048; 80076; 81003; 81025; 83690; 83735; 84484; 85025; 85610; 85730; 93005; 96374; 96375; 99285; Q9967